=== PATIENT | female | born 1970 | race Caucasian/White ===

== ENCOUNTER 2017-03-01 06:27 | Emergency (ER) | payer MEDICAID ==
[2017-03-01 06:36] VITALS: TEMP 98.1; O2SAT 100
[2017-03-01 07:49] LABS: RBC URINE 15 /hpf (0-3); URINE BACTERIA OCC (<OCC); URINE BILIRUBIN NEGATIVE (NEGATIVE); URINE BLOOD 3+ (NEGATIVE); URINE COLOR Straw (YELLOW); URINE GLUCOSE (UA) NORMAL (Normal); URINE KETONE NEGATIVE (NEGATIVE); URINE LEUKOCYTE ESTERASE 3+ Leu/uL (Negative); URINE PROTEIN NEGATIVE (NEGATIVE); URINE UROBILINOGEN NORMAL mg/dL (0.2-1.0); WBC URINE 68 /hpf (0-5)
--- NOTE | 2017-03-01 08:11 | C.PDOC ---
History Of Present Illness 47 y/o female presents to the ED with complaints of pain with urination x3 days with associated lower abdominal pain and nausea. Pt denies fever, chills, hematuria or any other complaints. Time Seen by Provider: 03/01/17 07:21 Chief Complaint (Nursing): Female Genitourinary History Per: Patient History/Exam Limitations: no limitations Onset/Duration Of Symptoms: Days Current Symptoms Are (Timing): Still Present Severity: Moderate Quality Of Discomfort: "Pain" Associated Symptoms: Nausea, Urinary Symptoms. denies: Fever, Chills, Vomiting , Back Pain Alleviating Factors: None Recent travel outside of the [place]: No Abnormal Vaginal Bleeding: No Past Medical History Reviewed: Historical Data, Nursing Documentation, Vital Signs Vital Signs: Last Vital Signs Temp 98.1 F 03/01/17 10:46 Pulse 87 03/01/17 10:46 Resp 16 03/01/17 10:46 BP 121/77 03/01/17 10:46 Pulse Ox 100 03/01/17 10:46 - Medical History PMH: Gall Bladder Disease (CHOLECYSTECTOMY), Migraine Surgical History: Cholecystectomy Family History: States: Unknown Family Hx - Social History Hx Tobacco Use: No Hx Alcohol Use: No Hx Substance Use: No - Immunization History Hx Tetanus Toxoid Vaccination: No Hx Influenza Vaccination: No Hx Pneumococcal Vaccination: No Review Of Systems Except As Marked, All Systems Reviewed And Found Negative. Constitutional: Negative for: Fever, Chills Gastrointestinal: Positive for: Nausea, Abdominal Pain. Negative for: Vomiting Genitourinary: Positive for: Dysuria. Negative for: Hematuria, Vaginal Bleeding Musculoskeletal: Negative for: Back Pain Physical Exam - Physical Exam Appears: Non-toxic, No Acute Distress Skin: Warm, Dry, No Rash Head: Atraumatic, Normacephalic Cardiovascular: Rhythm Regular, No Murmur Respiratory: Normal Breath Sounds, No Rales, No Rhonchi, No Wheezing Gastrointestinal/Abdominal: Normal Exam, Soft, No Tenderness, Mass (fibroid), No Guarding, No Rebound Extremity: Normal ROM Extremity: Bilateral: Atraumatic Neurological/Psych: Oriented x3, Normal Speech ED Course And Treatment - Laboratory Results Result Diagrams: 03/01/17 08:04 03/01/17 08:04 Lab Interpretation: No Acute Changes Urine POC: Negative O2 Sat by Pulse Oximetry: 100 Pulse Ox Interpretation: Normal - CT Scan/US No standard instances Other Rad Studies (CT/US): Read By Radiologist, Radiology Report Reviewed CT/US Interpretation: FINDINGS: There is limited evaluation of the solid organs without the administration of IV contrast. LOWER THORAX: No visible consolidation, pleural effusion, or pneumothorax. 2 mm right lower lobe nodule (series 5, image 8). Small hiatal hernia. LIVER: Unremarkable unenhanced appearance. GALLBLADDER AND BILE DUCTS: Cholecystectomy. PANCREAS: Unremarkable unenhanced appearance. SPLEEN: Unremarkable unenhanced appearance. ADRENALS: Unremarkable unenhanced appearance. KIDNEYS AND URETERS : No hydronephrosis or obstructing renal calculus. Nonobstructing 2 mm right renal calculus. BLADDER: Mildly thick-walled urinary bladder may be exaggerated by under distension. REPRODUCTIVE: Enlarged heterogeneous uterus. The uterus extends above the umbilicus. Multiple probable fibroids. APPENDIX: The appendix appears within normal limits of caliber. No secondary signs of acute appendicitis. BOWEL: The stomach is nondistended. Lack of oral contrast limits evaluation for bowel pathology. The bowel loops appear within normal limits of caliber without evidence of intestinal obstruction. Mild-to- moderate constipation. PERITONEUM: No significant free fluid. No definite free air. LYMPH NODES: No bulky lymphadenopathy identified. VASCULATURE: No aortic aneurysm. BONES: No acute osseous abnormality is detected. OTHER FINDINGS: Small fat containing umbilical hernia. IMPRESSION: Mild to moderate constipation. Enlarged heterogeneous appearance of the uterus. The uterus extends above the umbilicus. Multiple probable uterine fibroids. Mildly thick-walled urinary bladder may be exaggerated by under distension. Recommend correlation with urinalysis to exclude possibility of cystitis. 2 mm right lower lobe pulmonary nodule. In the absence of risk factors for lung cancer, no specific imaging follow-up is required. If the patient is a smoker or has other risk factors, follow-up CT at 12 months is recommended to document stability. Progress Note: Plan: CT abd, labs, urine, toradol, IV fluids. On re-evaluation abdomen soft non-tender, feeling better Reassessment Condition: Improved Disposition Counseled Patient/Family Regarding: Studies Performed, Diagnosis, Need For Followup, Rx Given - Disposition Referrals: [facility] [Outside] [facility] [Outside] Disposition: HOME/ ROUTINE Disposition Time: 10:40 Condition: IMPROVED Additional Instructions: Return to ED if any increase symptoms Prescriptions: Naproxen [Naprosyn] 1 tab PO BID PRN #25 tab PRN Reason: Pain Nitrofurantoin Macrocrystals [Macrobid] 1 cap PO BID #14 cap Instructions: Urinary Tract Infection in Women (DC) Print Language: [place] - POA Present On Arrival: None - Clinical Impression Clinical Impression: Uterine fibroid, UTI (urinary tract infection) - PA / ASSESSMENT CONSULTANT / Resident Statement MD/DO has reviewed & agrees with the documentation as recorded. - Scribe Statement The provider has reviewed the documentation as recorded by the Scriblauren Ramirez All medical record entries made by the Nicko were at my direction and personally dictated by me. I have reviewed the chart and agree that the record accurately reflects my personal performance of the history, physical exam, medical decision making, and the department course for this patient. I have also personally directed, reviewed, and agree with the discharge instructions and disposition.
[2017-03-01 08:17] LABS: BASO # 0.1 K/uL (0.0-0.2); BASO % 0.8 % (0.0-2.0); EOS # 0.2 K/uL (0.0-0.7); EOS % 1.4 % (0.0-4.0); HEMATOCRIT 32.1 % (34.0-47.0); LYMPH # 1.9 K/uL (1.0-4.3); LYMPH % 14.8 % (20.0-40.0); MEAN CELL VOLUME 75.3 fL (81.0-99.0); MEAN CORPUSCULAR HEMOGLOBIN 23.2 pg (27.0-31.0); MEAN CORPUSCULAR HGB CONC 30.8 g/dL (33.0-37.0); MEAN PLATELET VOLUME 7.9 fL (7.2-11.7); MONO # 0.6 K/uL (0.0-0.8); MONO % 4.5 % (0.0-10.0); RED CELL DISTRIBUTION WIDTH 16.8 % (11.5-14.5); WHITE BLOOD COUNT 12.7 K/uL (4.8-10.8)
[2017-03-01 08:39] LABS: CHLORIDE 103 mmol/L (98-107); POTASSIUM 4.2 mmol/L (3.6-5.2); SODIUM 139 mmol/L (132-148)
[2017-03-01 08:42] LABS: BLOOD UREA NITROGEN 9 mg/dL (7-17); CARBON DIOXIDE 27 mmol/L (22-30); GFR AFRICAN-AMERICAN > 60
[2017-03-01 08:43] LABS: CALCIUM 8.1 mg/dl (8.6-10.4); GLUCOSE,RANDOM 93 mg/dL (65-105)
--- NOTE | 2017-03-01 10:29 | CT ---
PROCEDURE: CT Abdomen and Pelvis without Oral or IV contrast. HISTORY: Pain COMPARISON: CT abdomen and pelvis performed 11/03/14 TECHNIQUE: Contiguous axial images of the abdomen and pelvis. No oral or IV contrast administered. Coronal and Sagittal reformats generated and reviewed. Radiation dose: Total exam DLP = 580.80 mGy-cm. This CT exam was performed using one or more of the following dose reduction techniques: Automated exposure control, adjustment of the mA and/or kV according to patient size, and/or use of iterative reconstruction technique. FINDINGS: There is limited evaluation of the solid organs without the administration of IV contrast. LOWER THORAX: No visible consolidation, pleural effusion, or pneumothorax. 2 mm right lower lobe nodule (series 5, image 8). Small hiatal hernia. LIVER: Unremarkable unenhanced appearance. GALLBLADDER AND BILE DUCTS: Cholecystectomy. PANCREAS: Unremarkable unenhanced appearance. SPLEEN: Unremarkable unenhanced appearance. ADRENALS: Unremarkable unenhanced appearance. KIDNEYS AND URETERS: No hydronephrosis or obstructing renal calculus. Nonobstructing 2 mm right renal calculus. BLADDER: Mildly thick-walled urinary bladder may be exaggerated by under distension. REPRODUCTIVE: Enlarged heterogeneous uterus. The uterus extends above the umbilicus. Multiple probable fibroids. APPENDIX: The appendix appears within normal limits of caliber. No secondary signs of acute appendicitis. BOWEL: The stomach is nondistended. Lack of oral contrast limits evaluation for bowel pathology. The bowel loops appear within normal limits of caliber without evidence of intestinal obstruction. [id number]-[id number] constipation. PERITONEUM: No significant free fluid. No definite free air. LYMPH NODES: No bulky lymphadenopathy identified. VASCULATURE: No aortic aneurysm. BONES: No acute osseous abnormality is detected. OTHER FINDINGS: Small fat containing umbilical hernia. IMPRESSION: Mild to moderate constipation. Enlarged heterogeneous appearance of the uterus. The uterus extends above the umbilicus. Multiple probable uterine fibroids. Mildly thick-walled urinary bladder may be exaggerated by under distension. Recommend correlation with urinalysis to exclude possibility of cystitis. 2 mm right lower lobe pulmonary nodule. In the absence of risk factors for lung cancer, no specific imaging follow-up is required. If the patient is a smoker or has other risk factors, follow-up CT at 12 months is recommended to document stability. Additional findings as above.
[2017-03-01 10:48] VITALS: BP 121/77; PULSE 87; RESP 16
== END 2017-03-01 10:49 | disposition home or self-care (01) ==
LOC: C.ER 06:27
DX: N39.0 Urinary tract infection, site not specified (principal); D25.9 Leiomyoma of uterus, unspecified
CPT/HCPCS: 74176; 80048; 81001; 84703; 85025; 96374; 99285; J1885

== ENCOUNTER 2017-07-22 11:18 | Observation (INO) | payer MEDICAID ==
[2017-07-22] MEDS ORDERED: Sodium Chloride 0.9% 1,000 ML IV ONE ×3 (12:06→18:04)
[2017-07-22 12:35] LABS: BASO % 0.2 % (0.0-2.0); HEMATOCRIT 40.5 % (34.0-47.0); LYMPH # 0.5 K/uL (1.0-4.3); LYMPH % 2.3 % (20.0-40.0); MEAN CORPUSCULAR HEMOGLOBIN 30.4 pg (27.0-31.0); MEAN PLATELET VOLUME 8.1 fL (7.2-11.7); MONO # 0.9 K/uL (0.0-0.8); MONO % 4.2 % (0.0-10.0); PLATELET COUNT 210 K/uL (130-400); RED CELL DISTRIBUTION WIDTH 15.4 % (11.5-14.5)
[2017-07-22 12:40] LABS: MEAN CELL VOLUME 89.5 fL (81.0-99.0); WHITE BLOOD COUNT 21.2 K/uL (4.8-10.8)
[2017-07-22 12:42] LABS: CHLORIDE 98 mmol/L (98-107)
[2017-07-22 12:43] LABS: POTASSIUM 3.1 mmol/L (3.6-5.2); RBC URINE 7 /hpf (0-3); SODIUM 134 mmol/L (132-148); URINE BILIRUBIN NEGATIVE (NEGATIVE); URINE BLOOD 1+ (NEGATIVE); URINE COLOR Yellow (YELLOW); URINE GLUCOSE (UA) NORMAL (Normal); URINE KETONE 1+ mg/dL (NEGATIVE); URINE LEUKOCYTE ESTERASE NEG Leu/uL (Negative); URINE PROTEIN NEGATIVE (NEGATIVE); WBC URINE 2 /hpf (0-5)
[2017-07-22 12:45] LABS: ALB/GLOB RATIO 1.7 (1.0-2.1); ALKALINE PHOSPHATASE 112 U/L (38-126); AST/SGOT 375 U/L (14-36); BLOOD UREA NITROGEN 11 mg/dL (7-17); CARBON DIOXIDE 24 mmol/L (22-30); GFR AFRICAN-AMERICAN > 60; TOTAL PROTEIN 6.6 g/dL (6.3-8.3)
[2017-07-22 12:46] LABS: ALT/SGPT 263 U/L (9-52); GLUCOSE,RANDOM 115 mg/dL (65-105)
[2017-07-22 13:01] LABS: NEUTROPHIL 88 % (50-75); TOTAL CELLS COUNTED 100
[2017-07-22] MEDS ORDERED: Potassium Chloride 20 mEq ER Tab PO STA (13:02)
[2017-07-22 13:07] LABS: LARGE PLATELETS PRESENT
[2017-07-22] MEDS ORDERED: Potassium Chloride 20 mEq ER Tab PO ONE (13:51)
[2017-07-22] MEDS ORDERED: Iodixanol 320 MG/ML 100 ML BOTTLE IV ONE (15:38)
--- NOTE | 2017-07-22 17:16 | CT ---
PROCEDURE: CT abdomen pelvis dated 07/22/2017. HISTORY: Pain. COMPARISON: Comparison made with prior CT scan abdomen pelvis 03/01/2017 comparison also made with multiple additional CT scans of the abdomen pelvis as well as abdominal ultrasound 02/01/2016. TECHNIQUE: Contiguous axial images of the abdomen and pelvis performed of following intravenous injection of oral and intravenous contrast material. . Pelvis without Coronal and Sagittal reformats generated. This CT exam was performed using one or more of the following dose reduction techniques: Automated exposure control, adjustment of the mA and/or kV according to patient size, and/or use of iterative reconstruction technique. Contrast dose: 100 cc Visipaque 320 contrast material Radiation dose: Total exam DLP = 239.36 mGy-cm. FINDINGS: LOWER THORAX: Small hiatal hernia with wall thickening of the distal esophagus likely due to protrusion of gastric mucosa. Possibility of esophagitis not excluded. Mild irregular atelectasis and or scarring right medial lung base. Heart size is within range of normal. LIVER: Liver exhibits normal size. Mild diffuse fatty hepatic infiltration. GALLBLADDER AND BILE DUCTS: Gallbladder is surgically absent with metallic clips again seen gallbladder fossa. Re- demonstrated PANCREAS: Unremarkable. No mass. No ductal dilatation. SPLEEN: Spleen is unremarkable. ADRENALS: Unremarkable. KIDNEYS AND URETERS: Kidneys demonstrate symmetric nephrograms. BLADDER: Urinary bladder is physiologically distended no somewhat compressed along its superior border by the large uterine mass lesion REPRODUCTIVE: Re- demonstrated is a very large and uterine mass measures approximately 15 by 12.5 x 10.2 cm ; this most likely represents uterine fibroid however other uterine pathology not excluded. APPENDIX: Normal-appearing appendix. BOWEL: Stomach is incompletely distended which presumably accounts for thick-walled appearance. Visualized loops of small bowel exhibit normal contour and caliber. No evidence of acute mechanical small bowel obstruction. Note that the small bowel is displaced superiorly and laterally about the large uterine mass. The stool and air seen throughout the proximal colon however the distal transverse descending and sigmoid colon relatively collapsed. PERITONEUM: Unremarkable. No fluid collection. No free air. Small fat containing umbilical hernia. LYMPH NODES: Unremarkable. No enlarged lymph nodes. VASCULATURE: Unremarkable. No aortic aneurysm. BONES: Minor multilevel degenerative spondylosis of the lower thoracic spine. No acute compression fractures no retropulsed fragments. OTHER FINDINGS: None. IMPRESSION: Re- demonstrated is a large uterine mass. Status post cholecystectomy. Mild fatty hepatic infiltration
[2017-07-22] MEDS ORDERED: cefTRIAXone IV 1 gm in Dextros 50 ML IV ONE (17:23)
--- NOTE | 2017-07-22 17:55 | C.PDOC ---
History Of Present Illness Patient is a 47 y/o female with past medical history includes migraine, cholecystectomy, and fibroid who presents to the ED with a complaint of lower back pain that radiates to the abdomen for the last 2 days. Patient admits to experiencing headache and nausea, but denies vomiting or fever. Reports Hx of similar episode a few months ago. No other physical complaints at this time. (- ) vaginal discharge Time Seen by Provider: 07/22/17 11:33 Chief Complaint (Nursing): Female Genitourinary History Per: Patient History/Exam Limitations: no limitations Onset/Duration Of Symptoms: Days (two days ), Waxing/Waning Current Symptoms Are (Timing): Still Present Recent travel outside of the [place]: No Past Medical History Reviewed: Historical Data, Nursing Documentation, Vital Signs Vital Signs: Last Vital Signs Temp 99.2 F 07/22/17 17:56 Pulse 101 H 07/22/17 17:56 Resp 16 07/22/17 17:56 BP 91/58 L 07/22/17 17:56 Pulse Ox 98 07/22/17 18:04 - Medical History PMH: Gall Bladder Disease (CHOLECYSTECTOMY), Migraine Surgical History: Cholecystectomy Family History: States: No Known Family Hx - Social History Hx Tobacco Use: No Hx Alcohol Use: No Hx Substance Use: No - Immunization History Hx Tetanus Toxoid Vaccination: No Hx Influenza Vaccination: No Hx Pneumococcal Vaccination: No Review Of Systems Constitutional: Negative for: Fever Gastrointestinal: Positive for: Nausea, Abdominal Pain (radiates from lower back ). Negative for: Vomiting Musculoskeletal: Positive for: Back Pain (lower back) Neurological: Positive for: Headache Physical Exam - Physical Exam Appears: Well, Non-toxic, No Acute Distress Skin: Normal Color, Warm, Dry Head: Atraumatic, Normacephalic Eye(s): bilateral: Normal Inspection, EOMI Nose: Normal Oral Mucosa: Moist Chest: Symmetrical Cardiovascular: Rhythm Regular, No Murmur Respiratory: Normal Breath Sounds, No Accessory Muscle Use, Other (speaking in full sentences) Gastrointestinal/Abdominal: Soft, Tenderness (diffuse), Mass Back: No Vertebral Tenderness, Other (paralumbar tenderness) Neurological/Psych: Oriented x3, Normal Cognition, Other (no focal deficits) ED Course And Treatment - Laboratory Results Result Diagrams: 07/22/17 12:31 07/22/17 12:31 ECG: Interpreted By Me, Viewed By Me ECG Rhythm: Sinus Tachycardia Rate From EC O2 Sat by Pulse Oximetry: 98 (room air) Pulse Ox Interpretation: Normal - Radiology CXR: Interpreted by Me, Viewed By Me CXR Interpretation: No: Infiltrates (no acute infiltrates) - CT Scan/US Abd/Pelvis Other Rad Studies (CT/US): Interpreted By Me, Read By Radiologist CT/US Interpretation: IMPRESSION: Re-demonstrated is a large uterine mass. Status post cholecystectomy. Mild fatty hepatic infiltration. Progress Note: Plan: EKG, CXR, and blood culture ordered. Tylenol, Toradol, Zofran, Rocephin, and IV fluids administered. - Physician Consult Information Time Consulting Physician Contacted: 18:45 Physician Contacted: Regan Allen Outcome Of Conversation: Case discussed with Dr. Allen and he agreed upon admission of patient. Disposition - Disposition Disposition: HOSPITALIZED Disposition Time: 18:15 Condition: STABLE - Clinical Impression Clinical Impression: Uterine fibroid, Leukocytosis - Scribe Statement The provider has reviewed the documentation as recorded by the Scribe Rosibel Miller All medical record entries made by the Scribe were at my direction and personally dictated by me. I have reviewed the chart and agree that the record accurately reflects my personal performance of the history, physical exam, medical decision making, and the department course for this patient. I have also personally directed, reviewed, and agree with the discharge instructions and disposition.
[2017-07-22] MEDS ORDERED: cefTRIAXone IV 1 gm in Dextros 50 ML IVPB ONE (17:56)
--- NOTE | 2017-07-22 18:01 | RAD ---
HISTORY: pain COMPARISON: Comparison made with chest radiograph 12/21/2013. Comparison also made with CT scan of the abdomen and pelvis dated 07/22/2017 which imaged both lung bases. TECHNIQUE: Chest PA and lateral FINDINGS: LUNGS: No active pulmonary disease. PLEURA: No significant pleural effusion identified. No pneumothorax apparent. CARDIOVASCULAR: Normal. OSSEOUS STRUCTURES: No significant abnormalities. VISUALIZED UPPER ABDOMEN: Normal. OTHER FINDINGS: None. IMPRESSION: No acute infiltrates.
[2017-07-22] MEDS ORDERED: Sodium Chloride 0.9% 1,000 ML ONE (18:08)
--- NOTE | 2017-07-22 22:11 | CP.PCM.CON ---
History of Present Illness - History of Present Illness History of Present Illness: Asked to see patient by Dr. Genie Allen: h/o leiomyomata. Patient received in bed, room 368; groggy; arousable. 47 y.o. , LMP 1 week ago, presented to E.D. c/o right low back/ flank/ RLQ and RUQ pain x 3 days. Denies nausea, vomiting, fever, chills, change in bowel movement pattern or symptoms. Patient has a private manager intern provider, office in [facility]. Patient states has no desire for any intervention re: leiomyoma. CT scan this admission: large uterine mass 15 x 12.5 x 10.2 cm; no lymphadenopathy P OB: C/S x 3: 24, 22 and 13 years ago. No complications P DRAMA DIRECTOR: 12 x monthly x 3-4 days. First diagnosed with leiomyomata 4 years ago. Most recent Pap - earlier this year. Most recent mammogram- earlier this year. Denies H/O STIs or abnormal Pap PMH: gallstones PSH: C/S x 3. 2011, right breast biopsy/cystectomy - benign. 2011, cholecystectomy Allergies: morphine = itching; benadryl - low blood pressure Meds: none at home Soc Hx: denies tobacco, illicit drug or EtOH use. Lives with significant other ; together x 28 years. 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 - Breast cancer survivor. Father - unknown. No other fam h/o cancer Review of Systems - Review of Systems All systems: reviewed and no additional remarkable complaints except - Musculoskeletal Musculoskeletal: Back Pain Past Patient History - Infectious Disease Hx of Infectious Diseases: None - Past Medical History & Family History Pertinent Family History: Mother - breast cancer - Past Social History Smoking Status: Never Smoked Drugs: Denies Home Situation {Lives}: With Family - CARDIAC Hx Cardiac Disorders: No - PULMONARY Hx Respiratory Disorders: No - NEUROLOGICAL Hx Migraine: Yes - HEENT Hx HEENT Problems: No - RENAL Hx Chronic Kidney Disease: No - ENDOCRINE/METABOLIC Hx Endocrine Disorders: No - HEMATOLOGICAL/ONCOLOGICAL Hx Blood Disorders: No - INTEGUMENTARY Hx Dermatological Problems: No - MUSCULOSKELETAL/RHEUMATOLOGICAL Hx Musculoskeletal Disorders: No - GASTROINTESTINAL Hx Gall Bladder Disease: Yes (CHOLECYSTECTOMY) - GENITOURINARY/GYNECOLOGICAL Other/Comment: Leiomyomata : 3 Para: 3 Termination of : 0 - PSYCHIATRIC Hx Psychophysiologic Disorder: No Hx Substance Use: No - SURGICAL HISTORY Hx Breast Biopsy: Yes (right, 2012) Hx Cholecystectomy: Yes - ANESTHESIA Hx Anesthesia: Yes Hx Anesthesia Reactions: No Meds Allergies/Adverse Reactions: Allergies Allergy/AdvReac Type Severity Reaction Status Date / Time diphenhydramine HCl AdvReac Verified 07/22/17 11:26 [From Benadryl] morphine AdvReac SHORTNESS Verified 07/22/17 11:26 OF BREATH - Medications Medications: Current Medications Enoxaparin Sodium (Lovenox) 40 mg SC DAILY LUIS ALFREDO Sodium Chloride (Sodium Chloride 0.9%) 1,000 mls @ 100 mls/hr IV .Q10H ONE Stop: 07/23/17 04:03 Last Admin: 07/22/17 18:11 Dose: 100 mls/hr Ceftriaxone Sodium 1 gm/ (Sodium Chloride) 100 mls @ 100 mls/hr IVPB Q24H LUIS ALFREDO Vancomycin/Sodium Chloride (Vancomycin 1 Gm/Ns 200 Ml) 1 gm in 200 mls @ 133 mls/hr IVPB DAILY [facility] Stop: 07/28/17 10:01 Ibuprofen (Motrin Tab) 400 mg PO Q8H PRN PRN Reason: Headache Pantoprazole Sodium (Protonix Inj) 40 mg IVP DAILY [facility] Physical Exam - Constitutional Appears: Well, No Acute Distress - Head Exam Head Exam: NORMAL INSPECTION - ENT Exam ENT Exam: Mucous Membranes Moist - Neck Exam Neck exam: Positive for: Full Rom - Respiratory Exam Respiratory Exam: NORMAL BREATHING PATTERN - Cardiovascular Exam Cardiovascular Exam: REGULAR RHYTHM - GI/Abdominal Exam GI & Abdominal Exam: Mass, Soft (Abdominal mass approx 18 weeks, firm, mobile, minimally tender.) - Exam Bimanual exam: Uterine Enlargement Additional comments: Bimanual exam deferred at this time - Extremities Exam Extremities exam: Positive for: full ROM, normal inspection - Neurological Exam Neurological exam: Oriented x3 - Psychiatric Exam Psychiatric exam: Normal Affect, Normal Mood - Skin Skin Exam: Dry, Normal Color, Warm Results - Vital Signs Recent Vital Signs: Last Vital Signs Temp 99.2 F 07/22/17 17:56 Pulse 101 H 07/22/17 17:56 Resp 16 07/22/17 17:56 BP 91/58 L 07/22/17 17:56 Pulse Ox 98 07/22/17 18:46 - Labs Result Diagrams: 07/22/17 12:31 07/22/17 12:31 Labs: Laboratory Results - last 24 hr 07/22/17 07/22/17 07/22/17 12:31 12:31 12:31 WBC 21.2 H D RBC 4.53 Hgb 13.8 D Hct 40.5 MCV 89.5 D MCH 30.4 MCHC 34.0 RDW 15.4 H Plt Count 210 MPV 8.1 Neut % (Auto) 93.3 H Lymph % (Auto) 2.3 L [place] % (Auto) 4.2 Eos % (Auto) 0.0 Baso % (Auto) 0.2 Neut # 19.8 H Lymph # 0.5 L [place] # 0.9 H Eos # 0.0 Baso # 0.0 Neutrophils % (Manual) 88 H Band Neutrophils % 6 H Lymphocytes % (Manual) 2 L Monocytes % (Manual) 4 Platelet Estimate Normal Large Platelets Present Polychromasia Slight Hypochromasia (manual) Slight Anisocytosis (manual) Slight Sodium 134 Potassium 3.1 L Chloride 98 Carbon Dioxide 24 Anion Gap 15 BUN 11 Creatinine 0.6 L Est GFR ( Amer) > 60 Est GFR (Non-Af Amer) > 60 Random Glucose 115 H Calcium 9.0 Total Bilirubin 1.0 AST 375 H ALT 263 H D Alkaline Phosphatase 112 Total Protein 6.6 Albumin 4.2 Globulin 2.5 Albumin/Globulin Ratio 1.7 Lipase 58 Urine Color Yellow Urine Clarity Clear Urine pH 6.0 Ur Specific [place] 1.014 Urine Protein Negative Urine Glucose (UA) Normal Urine Ketones 1+ H Urine Blood 1+ H Urine Nitrate Negative Urine Bilirubin Negative Urine Urobilinogen 2.0 H Ur Leukocyte Esterase Neg Urine WBC (Auto) 2 Urine RBC (Auto) 7 H Ur Squamous Epith Cells 5 Urine HCG, Qual Negative Influenza Typ A,B (EIA) 07/22/17 16:58 WBC RBC Hgb Hct MCV MCH MCHC RDW Plt Count MPV Neut % (Auto) Lymph % (Auto) [place] % (Auto) Eos % (Auto) Baso % (Auto) Neut # Lymph # [place] # Eos # Baso # Neutrophils % (Manual) Band Neutrophils % Lymphocytes % (Manual) Monocytes % (Manual) Platelet Estimate Large Platelets Polychromasia Hypochromasia (manual) Anisocytosis (manual) Sodium Potassium Chloride Carbon Dioxide Anion Gap BUN Creatinine Est GFR ( Amer) Est GFR (Non-Af Amer) Random Glucose Calcium Total Bilirubin AST ALT Alkaline Phosphatase Total Protein Albumin Globulin Albumin/Globulin Ratio Lipase Urine Color Urine Clarity Urine pH Ur Specific [place] Urine Protein Urine Glucose (UA) Urine Ketones Urine Blood Urine Nitrate Urine Bilirubin Urine Urobilinogen Ur Leukocyte Esterase Urine WBC (Auto) Urine RBC (Auto) Ur Squamous Epith Cells Urine HCG, Qual Influenza Typ A,B (EIA) Negative for flu a/b Assessment & Plan - Assessment and Plan (Free Text) Assessment: Labs and CT report read by me personally 47 y.o. P3, 4 year h/o leiomyoma - admitted for leukocytosis with bandemia. Patient has private manager intern - can follow up as an outpatient; no manager intern intervention at this time. Patient is clinically stable. Thank you for the pleasure of this consultation Plan: Medical management as per primary medical team - Date & Time Date: 07/22/17 Time: 22:21
[2017-07-23] MEDS ORDERED: Sodium Chloride 0.9% 1,000 ML IV SCH ×2 (07:00)
[2017-07-23 07:50] VITALS: BP 103/69; PULSE 89; RESP 20; TEMP 97.8; O2SAT 97
[2017-07-23 07:56] LABS: BASO # 0.1 K/uL (0.0-0.2); BASO % 0.3 % (0.0-2.0); EOS % 0.1 % (0.0-4.0); HEMATOCRIT 38.5 % (34.0-47.0); LYMPH # 0.9 K/uL (1.0-4.3); LYMPH % 5.6 % (20.0-40.0); MEAN CELL VOLUME 91.4 fL (81.0-99.0); MEAN CORPUSCULAR HEMOGLOBIN 30.5 pg (27.0-31.0); MEAN CORPUSCULAR HGB CONC 33.4 g/dL (33.0-37.0); MEAN PLATELET VOLUME 8.3 fL (7.2-11.7); MONO # 0.6 K/uL (0.0-0.8); MONO % 3.8 % (0.0-10.0); PLATELET COUNT 187 K/uL (130-400); RED CELL DISTRIBUTION WIDTH 15.9 % (11.5-14.5); WHITE BLOOD COUNT 15.6 K/uL (4.8-10.8)
[2017-07-23 08:19] LABS: CHLORIDE 104 mmol/L (98-107); POTASSIUM 3.7 mmol/L (3.6-5.2); SODIUM 135 mmol/L (132-148)
[2017-07-23 08:21] LABS: ALB/GLOB RATIO 1.4 (1.0-2.1); AST/SGOT 154 U/L (14-36); CARBON DIOXIDE 25 mmol/L (22-30); GFR AFRICAN-AMERICAN > 60; TOTAL PROTEIN 5.8 g/dL (6.3-8.3)
[2017-07-23 08:22] LABS: ALKALINE PHOSPHATASE 89 U/L (38-126); ALT/SGPT 206 U/L (9-52); BLOOD UREA NITROGEN 10 mg/dL (7-17); CALCIUM 7.9 mg/dl (8.6-10.4); GLUCOSE,RANDOM 77 mg/dL (65-105)
[2017-07-23 08:33] LABS: NEUTROPHIL 87 % (50-75); TOTAL CELLS COUNTED 100
[2017-07-23] MEDS ORDERED: Enoxaparin 40 mg Syringe SC SCH (10:00)
[2017-07-23] MEDS ORDERED: Vancomycin 1 gm/NS 200 ml 1 GM/200 ML BAG IVPB SCH (10:00)
[2017-07-23] MEDS ORDERED: Influenza Vaccine 60 mcg/0.5 mL SYR (4YR UP) IM ONE (12:53)
[2017-07-23] MEDS ORDERED: Pneumococcal 23-Valent Vaccine IM ONE (12:53)
--- NOTE | 2017-07-24 12:44 | CARD ---
APPROVED REPORT EKG Measurement Heart [id number] <Conclusion> Sinus tachycardia Otherwise normal ECG
[2017-07-25] MEDS ORDERED: Influenza Vaccine 60 mcg/0.5 mL SYR (4YR UP) IM ONE (10:00)
[2017-07-25] MEDS ORDERED: Pneumococcal 23-Valent Vaccine IM ONE ×2 (10:00→23:27)
== END 2017-07-23 14:15 | disposition left against medical advice (07) ==
LOC: C.ER 11:18 → C.9E 17:25 → C.3T 17:46
PROVIDERS: ADMIT Internal Medicine Nephrology; ATTEND Internal Medicine Nephrology
DX: D25.9 Leiomyoma of uterus, unspecified (principal); D72.829 Elevated white blood cell count, unspecified
CPT/HCPCS: 36415; 71020; 74177; 80053; 81001; 83690; 84703; 85025; 87040; 87804; 93005; 96361; 96365; 96367; 96372; 96375; 99285; C9113; G0378; J0696; J1650; J1885; J2405; J3370; J7040; Q9967

== ENCOUNTER 2017-08-23 10:53 | Emergency (ER) | payer MEDICAID ==
--- NOTE | 2017-08-23 11:17 | C.PDOC ---
History Of Present Illness 47 y/o female presents to ED c/o lower abdominal pain radiating to her back since yesterday. Pt also reports associated fever, chills, nausea, and vomiting. Denies dysruia, hematuria, urinary frequency, or other complaints. Time Seen by Provider: 08/23/17 11:07 Chief Complaint (Nursing): Back Pain History Per: Patient History/Exam Limitations: no limitations Onset/Duration Of Symptoms: Days (1) Current Symptoms Are (Timing): Still Present Quality Of Discomfort: "Pain" Associated Symptoms: denies: Incontinence, New Weakness, New Numbness Exacerbating Factor(s): Nothing Recent travel outside of the [place]: No Additional History Per: Patient Past Medical History Reviewed: Historical Data, Nursing Documentation, Vital Signs Vital Signs: Last Vital Signs Temp 99.6 F 08/23/17 10:59 Pulse 120 H 08/23/17 10:59 Resp 20 08/23/17 10:59 BP 105/71 08/23/17 10:59 Pulse Ox 98 08/23/17 11:32 - Medical History PMH: Anemia, Gall Bladder Disease (CHOLECYSTECTOMY), Migraine Denies: Chronic Kidney Disease Surgical History: Cholecystectomy Family History: States: Unknown Family Hx - Social History Hx Tobacco Use: No Hx Alcohol Use: No Hx Substance Use: No - Immunization History Hx Tetanus Toxoid Vaccination: No Hx Influenza Vaccination: No Hx Pneumococcal Vaccination: No Review Of Systems Except As Marked, All Systems Reviewed And Found Negative. Constitutional: Positive for: Fever, Chills Cardiovascular: Negative for: Chest Pain Respiratory: Negative for: Shortness of Breath Gastrointestinal: Positive for: Nausea, Vomiting, Abdominal Pain. Negative for : Diarrhea, Constipation Genitourinary: Negative for: Dysuria, Frequency, Hematuria, Vaginal Discharge, Vaginal Bleeding Physical Exam - Physical Exam Appears: Non-toxic, No Acute Distress Skin: Normal Color, Warm, Dry Head: Atraumatic, Normacephalic Eye(s): bilateral: Normal Inspection Oral Mucosa: Moist Neck: Supple Chest: Symmetrical Cardiovascular: Rhythm Regular, No Murmur Respiratory: Normal Breath Sounds, No Rales, No Rhonchi, No Wheezing Gastrointestinal/Abdominal: Soft, Tenderness (diffuse), No Guarding, No Rebound Back: No CVA Tenderness Extremity: Normal ROM, No Pedal Edema Neurological/Psych: Oriented x3, Normal Speech ED Course And Treatment - Laboratory Results Result Diagrams: 08/23/17 11:51 08/23/17 11:51 O2 Sat by Pulse Oximetry: 98 Pulse Ox Interpretation: Normal Medical Decision Making Medical Decision Makin pt resting quietly, no distress, reports improvement in pain, appears comfortable. disc results, plan for rx, f/u, rtr. pt v/u and agrees w plan. PROCEDURE: CT Abdomen and Pelvis with contrast HISTORY: abdominal pain COMPARISON: Comparison is made to the previous study dated 07/22/2017 TECHNIQUE: Contrast dose: 100 mL Visipaque 320. Axial and reformatted coronal and sagittal CT images of the abdomen and pelvis were obtained after IV contrast administration. Radiation dose: Total exam DLP = 294.29 mGy-cm. This CT exam was performed using one or more of the following dose reduction techniques: Automated exposure control, adjustment of the mA and/or kV according to patient size, and/or use of iterative reconstruction technique. FINDINGS: LOWER THORAX: Unremarkable. LIVER: Unremarkable. No gross lesion or ductal dilatation. GALLBLADDER AND BILE DUCTS: Status post cholecystectomy. PANCREAS: Unremarkable. No gross lesion or ductal dilatation. SPLEEN: Unremarkable. ADRENALS: Unremarkable. No mass. KIDNEYS AND URETERS: There is 3 millimeter nonobstructing calculus at the mid to upper pole right kidney was previously noted in 01/1930 noncontrast study. No evidence of hydronephrosis or hydroureter. VASCULATURE: Unremarkable. No aortic aneurysm. BOWEL: Unremarkable. No obstruction. No gross mural thickening. APPENDIX: There is no evidence of appendicitis. PERITONEUM: Unremarkable. No free fluid. No free air. LYMPH NODES: There are mildly enlarged lymph nodes seen around the art the in the mid to upper abdomen of uncertain etiology likely reactive. BLADDER: The bladder is slightly displaced inferiorly by the enlarged uterus. REPRODUCTIVE: The uterus is moderately to markedly enlarged measures up to 23.3 centimeter in the largest longitudinal diameter. Again seen are multiple heterogeneous enhancing soft tissue mass lesions in the uterus may represent fibroids. The largest mass seen at the uterine fundus measures 12 centimeter in the transverse diameter and 9.4 centimeter in the AP diameter. The uterine cervix is also moderately enlarged. There is heterogeneous enhancing mass at the anterior lower portion of the uterine measures 2.3 centimeter likely represent fibroid. There is 2.1 centimeters cyst at the left adnexa. BONES: No acute fracture. OTHER FINDINGS: None. IMPRESSION: No evidence of significant interval change when compared to the previous exam. Mildly enlarged periaortic lymph nodes at the mid to upper abdomen noted. Moderately to markedly enlarged uterus contains heterogeneous enhancing mass lesions likely represent large fibroids. The possibility of fibroid degeneration or necrosis is not totally excluded in this study. 2.1 centimeters cyst at the left adnexa. 3 millimeter nonobstructing calculus at the midpole of the right kidney. Disposition - Disposition Disposition: HOME/ ROUTINE Disposition Time: 14:04 Condition: IMPROVED Forms: [employer] ([employer]) - Clinical Impression Clinical Impression: Abdominal pain, Vomiting - Scribe Statement The provider has reviewed the documentation as recorded by the Scribe Lynette Allen All medical record entries made by the Scribe were at my direction and personally dictated by me. I have reviewed the chart and agree that the record accurately reflects my personal performance of the history, physical exam, medical decision making, and the department course for this patient. I have also personally directed, reviewed, and agree with the discharge instructions and disposition.
[2017-08-23] MEDS ORDERED: Sodium Chloride 0.9% 1,000 ML IV ONE (11:18)
[2017-08-23] MEDS ORDERED: Sodium Chloride 0.9% 1,000 ML ONE ×2 (11:32→11:34)
[2017-08-23 11:54] LABS: BASO # 0.1 K/uL (0.0-0.2); BASO % 0.6 % (0.0-2.0); EOS % 0.1 % (0.0-4.0); HEMATOCRIT 41.4 % (34.0-47.0); LYMPH # 0.7 K/uL (1.0-4.3); MEAN CELL VOLUME 90.8 fL (81.0-99.0); MEAN CORPUSCULAR HEMOGLOBIN 30.4 pg (27.0-31.0); MEAN CORPUSCULAR HGB CONC 33.4 g/dL (33.0-37.0); MEAN PLATELET VOLUME 8.3 fL (7.2-11.7); MONO # 0.6 K/uL (0.0-0.8); MONO % 3.2 % (0.0-10.0); PLATELET COUNT 233 K/uL (130-400); WHITE BLOOD COUNT 18.6 K/uL (4.8-10.8)
[2017-08-23 12:11] LABS: URINE BILIRUBIN NEGATIVE (NEGATIVE); URINE BLOOD NEGATIVE (NEGATIVE); URINE COLOR Colorless (YELLOW); URINE GLUCOSE (UA) NORMAL (Normal); URINE KETONE NEGATIVE (NEGATIVE); URINE LEUKOCYTE ESTERASE NEG Leu/uL (Negative); URINE PROTEIN NEGATIVE (NEGATIVE); URINE UROBILINOGEN NORMAL mg/dL (0.2-1.0)
[2017-08-23 12:14] LABS: ALB/GLOB RATIO 1.5 (1.0-2.1); ALKALINE PHOSPHATASE 97 U/L (38-126); ALT/SGPT 133 U/L (9-52); AST/SGOT 177 U/L (14-36); BILIRUBIN,TOTAL 0.9 mg/dL (0.2-1.3); BLOOD UREA NITROGEN 9 mg/dL (7-17); CALCIUM 8.6 mg/dl (8.6-10.4); CARBON DIOXIDE 25 mmol/L (22-30); CHLORIDE 100 mmol/L (98-107); GFR AFRICAN-AMERICAN > 60; GLUCOSE,RANDOM 98 mg/dL (65-105); POTASSIUM 3.3 mmol/L (3.6-5.2); SODIUM 132 mmol/L (132-148); TOTAL PROTEIN 6.6 g/dL (6.3-8.3)
[2017-08-23 12:25] LABS: NEUTROPHIL 89 % (50-75); TOTAL CELLS COUNTED 100
[2017-08-23] MEDS ORDERED: Iodixanol 320 MG/ML 100 ML BOTTLE IV ONE (12:40)
--- NOTE | 2017-08-23 13:35 | CT ---
PROCEDURE: CT Abdomen and Pelvis with contrast HISTORY: abdominal pain COMPARISON: Comparison is made to the previous study dated 07/22/2017 TECHNIQUE: Contrast dose: 100 mL Visipaque 320. Axial and reformatted coronal and sagittal CT images of the abdomen and pelvis were obtained after IV contrast administration. Radiation dose: Total exam DLP = 294.29 mGy-cm. This CT exam was performed using one or more of the following dose reduction techniques: Automated exposure control, adjustment of the mA and/or kV according to patient size, and/or use of iterative reconstruction technique. FINDINGS: LOWER THORAX: Unremarkable. LIVER: Unremarkable. No gross lesion or ductal dilatation. GALLBLADDER AND BILE DUCTS: Status post cholecystectomy. PANCREAS: Unremarkable. No gross lesion or ductal dilatation. SPLEEN: Unremarkable. ADRENALS: Unremarkable. No mass. KIDNEYS AND URETERS: There is 3 millimeter nonobstructing calculus at the mid to upper pole right kidney was previously noted in 01/1930 noncontrast study. No evidence of hydronephrosis or hydroureter. VASCULATURE: Unremarkable. No aortic aneurysm. BOWEL: Unremarkable. No obstruction. No gross mural thickening. APPENDIX: There is no evidence of appendicitis. PERITONEUM: Unremarkable. No free fluid. No free air. LYMPH NODES: There are mildly enlarged lymph nodes seen around the art the in the mid to upper abdomen of uncertain etiology likely reactive. BLADDER: The bladder is slightly displaced inferiorly by the enlarged uterus. REPRODUCTIVE: The uterus is moderately to markedly enlarged measures up to 23.3 centimeter in the largest longitudinal diameter. Again seen are multiple heterogeneous enhancing soft tissue mass lesions in the uterus may represent fibroids. The largest mass seen at the uterine fundus measures 12 centimeter in the transverse diameter and 9.4 centimeter in the AP diameter. The uterine cervix is also moderately enlarged. There is heterogeneous enhancing mass at the anterior lower portion of the uterine measures 2.3 centimeter likely represent fibroid. There is 2.1 centimeters cyst at the left adnexa. BONES: No acute fracture. OTHER FINDINGS: None. IMPRESSION: No evidence of significant interval change when compared to the previous exam. Mildly enlarged periaortic lymph nodes at the mid to upper abdomen noted. Moderately to markedly enlarged uterus contains heterogeneous enhancing mass lesions likely represent large fibroids. The possibility of fibroid degeneration or necrosis is not totally excluded in this study. 2.1 centimeters cyst at the left adnexa. 3 millimeter nonobstructing calculus at the midpole of the right kidney.
[2017-08-23 14:59] VITALS: BP 101/64; PULSE 88; RESP 18; TEMP 98.7; O2SAT 100
== END 2017-08-23 14:25 | disposition home or self-care (01) ==
LOC: C.ER 10:53
DX: R10.30 Lower abdominal pain, unspecified (principal); R11.10 Vomiting, unspecified
CPT/HCPCS: 74177; 80053; 81001; 83690; 84703; 85025; 96361; 96374; 96375; 99283; J1885; J2405; J7040; Q9967

== ENCOUNTER 2018-05-07 08:35 | Observation (INO) | payer MEDICAID ==
[2018-05-07] MEDS ORDERED: Sodium Chloride 0.9% 1,000 ML IV STA (09:20)
[2018-05-07 09:29] LABS: HCG,QUALITATIVE URINE NEGATIVE (NEGATIVE)
[2018-05-07] MEDS ORDERED: Sodium Chloride 0.9% 1,000 ML ONE (09:32)
[2018-05-07 09:36] LABS: SQUAMOUS EPITHIAL 17 /hpf (0-5); URINE BACTERIA RARE (<OCC); URINE BILIRUBIN NEGATIVE (NEGATIVE); URINE BLOOD NEGATIVE (NEGATIVE); URINE CLARITY Clear (Clear); URINE COLOR Yellow (YELLOW); URINE GLUCOSE (UA) NORMAL (Normal); URINE LEUKOCYTE ESTERASE NEG Leu/uL (Negative); URINE PROTEIN NEGATIVE (NEGATIVE); URINE UROBILINOGEN NORMAL mg/dL (0.2-1.0)
[2018-05-07 09:38] LABS: BASO % 0.2 % (0.0-2.0); EOS % 0.2 % (0.0-4.0); LYMPH % 6.4 % (20.0-40.0); MEAN CORPUSCULAR HEMOGLOBIN 25.2 pg (27.0-31.0); MEAN PLATELET VOLUME 8.1 fL (7.2-11.7); MONO # 0.5 K/uL (0.0-0.8); MONO % 3.5 % (0.0-10.0); NEUT # 14.1 K/uL (1.8-7.0); NEUT % 89.7 % (50.0-75.0); PLATELET COUNT 276 K/uL (130-400); RBC 4.68 Mil/uL (3.80-5.20); RED CELL DISTRIBUTION WIDTH 16.5 % (11.5-14.5); WHITE BLOOD COUNT 15.7 K/uL (4.8-10.8)
[2018-05-07 09:41] LABS: HEMOGLOBIN 11.8 g/dL (11.0-16.0)
[2018-05-07 09:42] LABS: MEAN CELL VOLUME 78.6 fL (81.0-99.0)
[2018-05-07 09:58] LABS: ALB/GLOB RATIO 1.4 (1.0-2.1); ALBUMIN 4.1 g/dL (3.5-5.0); ALT/SGPT 40 U/L (9-52); AST/SGOT 45 U/L (14-36); BLOOD UREA NITROGEN 8 mg/dL (7-17); CALCIUM 9.1 mg/dl (8.6-10.4); GFR AFRICAN-AMERICAN > 60; GFR NON-AFRICAN AMERICAN > 60
[2018-05-07 10:06] LABS: LYMPHOCYTE 3 % (20-40); MONOCYTE 5 % (0-10); NEUTROPHIL 92 % (50-75); PLATELET ESTIMATE NORMAL (NORMAL); TOTAL CELLS COUNTED 100
[2018-05-07 10:07] LABS: ANISOCYTOSIS SLIGHT; HYPOCHROMIC SLIGHT; POLYCHROMIC SLIGHT
[2018-05-07 10:08] LABS: TEARDROP CELLS SLIGHT
--- NOTE | 2018-05-07 10:48 | C.PDOC ---
History Of Present Illness 48-year-old female, presents to the emergency department with complaints of one day duration of body aches and subjective fever. Patient denies any nausea/ vomiting, abdominal pain, back pain, or any other associated symptoms. No other complaints at this time. Chief Complaint (Nursing): Flu-like Symptoms History Per: Patient History/Exam Limitations: no limitations Current Symptoms Are (Timing): Still Present Past Medical History Reviewed: Historical Data, Nursing Documentation, Vital Signs Vital Signs: Last Vital Signs Temp 98.5 F 05/07/18 08:46 Pulse 98 H 05/07/18 08:46 Resp 18 05/07/18 08:46 BP 108/76 05/07/18 08:46 Pulse Ox 100 05/07/18 08:46 - Medical History PMH: Anemia, Gall Bladder Disease (CHOLECYSTECTOMY), Migraine Denies: Chronic Kidney Disease Surgical History: Cholecystectomy Family History: States: No Known Family Hx - Social History Hx Tobacco Use: No Hx Alcohol Use: No Hx Substance Use: No - Immunization History Hx Tetanus Toxoid Vaccination: No Hx Influenza Vaccination: No Hx Pneumococcal Vaccination: No Review Of Systems Constitutional: Positive for: Fever, Malaise Cardiovascular: Negative for: Chest Pain, Palpitations Respiratory: Negative for: Shortness of Breath Gastrointestinal: Negative for: Nausea, Vomiting Musculoskeletal: Negative for: Back Pain Physical Exam - Physical Exam Appears: Non-toxic, No Acute Distress Skin: Normal Color, Warm, Dry, No Rash Head: Atraumatic, Normacephalic Eye(s): bilateral: Normal Inspection Nose: Normal Oral Mucosa: Moist Lips: Normal Appearing Neck: Normal ROM Chest: Symmetrical Cardiovascular: Rhythm Regular, No Murmur Respiratory: Normal Breath Sounds, No Accessory Muscle Use Gastrointestinal/Abdominal: Soft, No Tenderness, No Guarding, No Rebound, Other (uterus distended) Extremity: Normal ROM, No Deformity, No Swelling Neurological/Psych: Oriented x3, Normal Speech ED Course And Treatment - Laboratory Results Result Diagrams: 05/07/18 09:35 05/07/18 09:35 O2 Sat by Pulse Oximetry: 100 Pulse Ox Interpretation: Normal (RA) Progress Note: Bloodwork, Chest X-Ray, UA, rapid strep/flu ordered and reviewed. Pt treated with IVFs and Toradol Disposition - Disposition - Scribe Statement The provider has reviewed the documentation as recorded by the Scribe (Benjamín Gomez) All medical record entries made by the Scribe were at my direction and personally dictated by me. I have reviewed the chart and agree that the record accurately reflects my personal performance of the history, physical exam, medical decision making, and the department course for this patient. I have also personally directed, reviewed, and agree with the discharge instructions and disposition.
[2018-05-07 11:05] LABS: INFLUENZA A B NEGATIVE FOR FLU A/B (NEGATIVE)
--- NOTE | 2018-05-07 11:14 | RAD ---
Date of service: 05/07/2018 HISTORY: fever/leucocytosis COMPARISON: 07/22/2017 TECHNIQUE: Chest PA and lateral FINDINGS: LUNGS: No active pulmonary disease. PLEURA: No significant pleural effusion identified. No pneumothorax apparent. CARDIOVASCULAR: Normal. OSSEOUS STRUCTURES: No significant abnormalities. VISUALIZED UPPER ABDOMEN: Normal. OTHER FINDINGS: None. IMPRESSION: No active disease.
--- NOTE | 2018-05-07 11:37 | C.PDOC ---
History Of Present Illness 48-year-old female, presents to the emergency department with complaints of one day duration of body aches and subjective fever. Patient denies any nausea/ vomiting, abdominal pain, back pain, or any other associated symptoms. No other complaints at this time. Chief Complaint (Nursing): Flu-like Symptoms History Per: Patient History/Exam Limitations: no limitations Current Symptoms Are (Timing): Still Present Past Medical History Reviewed: Historical Data, Nursing Documentation, Vital Signs Vital Signs: Last Vital Signs Temp 98.0 F 05/07/18 15:46 Pulse 93 H 05/07/18 15:46 Resp 20 05/07/18 15:46 BP 100/67 05/07/18 15:46 Pulse Ox 100 05/07/18 17:36 - Medical History PMH: Anemia, Gall Bladder Disease (CHOLECYSTECTOMY), Migraine Denies: Chronic Kidney Disease Surgical History: Cholecystectomy Family History: States: No Known Family Hx - Social History Hx Tobacco Use: No Hx Alcohol Use: No Hx Substance Use: No - Immunization History Hx Tetanus Toxoid Vaccination: No Hx Influenza Vaccination: No Hx Pneumococcal Vaccination: No Review Of Systems Constitutional: Positive for: Fever, Malaise Respiratory: Negative for: Shortness of Breath Gastrointestinal: Negative for: Vomiting Skin: Negative for: Rash Physical Exam - Physical Exam Appears: Non-toxic, No Acute Distress Skin: Normal Color, Warm, Dry, No Rash Head: Atraumatic, Normacephalic Eye(s): bilateral: Normal Inspection Nose: Normal Oral Mucosa: Moist Lips: Normal Appearing Neck: Normal ROM Chest: Symmetrical Cardiovascular: Rhythm Regular, No Murmur Respiratory: Normal Breath Sounds, No Accessory Muscle Use Gastrointestinal/Abdominal: Soft, No Tenderness (distended uterus) Extremity: Normal ROM, No Deformity, No Swelling Neurological/Psych: Oriented x3, Normal Speech ED Course And Treatment - Laboratory Results Result Diagrams: 05/07/18 09:35 05/07/18 09:35 O2 Sat by Pulse Oximetry: 100 Pulse Ox Interpretation: Normal (RA) - Other Rad CXR X-Ray: Viewed By Me, Read By Radiologist Interpretation: Accession No. : [id number]. Patient Name / ID : APRIL NARANJO / [id number]. Exam Date : 05/07/2018 10:19:21 ( Approved ). Study Comment : Sex / Age : F / 48Y. Creator : Jamie Antony MD. Dictator : Jamie Antony MD. Oil Heater Installer : Chiropractic Neurologist : Jamie Antony MD. Approver2 : Report Date : 05/07/2018 11:12:48. My Comment : . Date of service: 05/07/2018. HISTORY: fever/leucocytosis. COMPARISON: 07/22. TECHNIQUE: Chest PA and lateral. FINDINGS: LUNGS: No active pulmonary disease. PLEURA: No significant pleural effusion identified. No pneumothorax apparent. CARDIOVASCULAR: Normal. OSSEOUS STRUCTURES: No significant abnormalities. VISUALIZED UPPER ABDOMEN: Normal. OTHER FINDINGS: None. IMPRESSION: No active disease. Progress Note: Bloodwork, Chest X-Ray, UA, rapid strep/flu ordered and reviewed. Pt treated with IVFs and Toradol. Patient has significantly elevated WBCs without clear source of infection. case was d/w pt's PMD who accepted her for observation to med/surg. Rocephin IV started. Disposition - Disposition Disposition: HOSPITALIZED Disposition Time: 12:26 Condition: FAIR - Clinical Impression Clinical Impression: Leukocytosis, Myalgia - Scribe Statement The provider has reviewed the documentation as recorded by the Scribe (Benjamín Gomez) All medical record entries made by the Scribe were at my direction and personally dictated by me. I have reviewed the chart and agree that the record accurately reflects my personal performance of the history, physical exam, medical decision making, and the department course for this patient. I have also personally directed, reviewed, and agree with the discharge instructions and disposition. Decision To Admit - Pt Status Changed To: Hospital Disposition Of: Observation - . Bed Request Type: Regular Admitting Physician: Regan Allen Patient Diagnosis: Leukocytosis, Myalgia
[2018-05-07] MEDS ORDERED: cefTRIAXone IV 1 gm in Dextros 50 ML IVPB STA (12:07)
[2018-05-07] MEDS ORDERED: cefTRIAXone IV 1 gm in Dextros 50 ML IVPB ONE (12:09)
[2018-05-07 13:48] VITALS: RESP 20
--- NOTE | 2018-05-07 19:09 | CP.PCM.HP ---
Past Patient History - Infectious Disease Hx of Infectious Diseases: None - Past Medical History & Family History Past Medical History?: Yes - Past Social History Smoking Status: Never Smoked - CARDIAC Hx Cardiac Disorders: No - PULMONARY Hx Respiratory Disorders: No - NEUROLOGICAL Hx Migraine: Yes - HEENT Hx HEENT Problems: No - RENAL Hx Chronic Kidney Disease: No - ENDOCRINE/METABOLIC Hx Endocrine Disorders: No - HEMATOLOGICAL/ONCOLOGICAL Hx Anemia: Yes - INTEGUMENTARY Hx Dermatological Problems: No - MUSCULOSKELETAL/RHEUMATOLOGICAL Hx Musculoskeletal Disorders: No - GASTROINTESTINAL Hx Gall Bladder Disease: Yes (CHOLECYSTECTOMY) - GENITOURINARY/GYNECOLOGICAL Hx Genitourinary Disorders: Yes Other/Comment: Leiomyomata - PSYCHIATRIC Hx Substance Use: No - SURGICAL HISTORY Hx Cholecystectomy: Yes - ANESTHESIA Hx Anesthesia: Yes Hx Anesthesia Reactions: No Meds Allergies/Adverse Reactions: Allergies Allergy/AdvReac Type Severity Reaction Status Date / Time diphenhydramine HCl AdvReac Verified 05/07/18 08:49 [From Benadryl] morphine AdvReac SHORTNESS Verified 05/07/18 08:49 OF BREATH Physical Exam - Constitutional Appears: Well - Head Exam Head Exam: ATRAUMATIC, NORMAL INSPECTION, NORMOCEPHALIC - Eye Exam Eye Exam: EOMI, Normal appearance, PERRL Pupil Exam: NORMAL ACCOMODATION, PERRL - ENT Exam ENT Exam: Mucous Membranes Moist, Normal Exam - Neck Exam Neck exam: Positive for: Normal Inspection - Respiratory Exam Respiratory Exam: Decreased Breath Sounds - Cardiovascular Exam Cardiovascular Exam: REGULAR RHYTHM, +S1, +S2 - GI/Abdominal Exam GI & Abdominal Exam: Diminished Bowel Sounds, Soft - Rectal Exam Rectal Exam: Deferred Results - Vital Signs Recent Vital Signs: Last Vital Signs Temp 98.0 F 05/07/18 15:46 Pulse 93 H 05/07/18 15:46 Resp 20 05/07/18 15:46 BP 100/67 05/07/18 15:46 Pulse Ox 100 05/07/18 18:34 - Labs Result Diagrams: 05/07/18 09:35 05/07/18 09:35 Labs: Laboratory Results - last 24 hr 05/07/18 05/07/18 05/07/18 09:13 09:35 09:35 WBC 15.7 H RBC 4.68 Hgb 11.8 D Hct 36.8 MCV 78.6 L D MCH 25.2 L MCHC 32.0 L RDW 16.5 H Plt Count 276 MPV 8.1 Neut % (Auto) 89.7 H Lymph % (Auto) 6.4 L [place] % (Auto) 3.5 Eos % (Auto) 0.2 Baso % (Auto) 0.2 Neut # (Auto) 14.1 H Lymph # (Auto) 1.0 [place] # (Auto) 0.5 Eos # (Auto) 0.0 Baso # (Auto) 0.0 Neutrophils % (Manual) 92 H Lymphocytes % (Manual) 3 L Monocytes % (Manual) 5 Platelet Estimate Normal Polychromasia Slight Hypochromasia (manual) Slight Anisocytosis (manual) Slight Tear Drop Cells Slight Sodium 140 Potassium 4.0 Chloride 104 Carbon Dioxide 27 Anion Gap 13 BUN 8 Creatinine 0.5 L Est GFR ( Amer) > 60 Est GFR (Non-Af Amer) > 60 Random Glucose 103 Calcium 9.1 Total Bilirubin 0.6 AST 45 H D ALT 40 Alkaline Phosphatase 82 Total Creatine Kinase 47 Total Protein 7.0 Albumin 4.1 Globulin 2.9 Albumin/Globulin Ratio 1.4 Urine Color Yellow Urine Clarity Clear Urine pH 6.0 Ur Specific [place] 1.009 Urine Protein Negative Urine Glucose (UA) Normal Urine Ketones Negative Urine Blood Negative Urine Nitrate Negative Urine Bilirubin Negative Urine Urobilinogen Normal Ur Leukocyte Esterase Neg Urine WBC (Auto) < 1 Urine RBC (Auto) < 1 Ur Squamous Epith Cells 17 H Urine Bacteria Rare Urine HCG, Qual Negative Influenza Typ A,B (EIA) Grp A Beta Strep Ag 05/07/18 10:47 WBC RBC Hgb Hct MCV MCH MCHC RDW Plt Count MPV Neut % (Auto) Lymph % (Auto) [place] % (Auto) Eos % (Auto) Baso % (Auto) Neut # (Auto) Lymph # (Auto) [place] # (Auto) Eos # (Auto) Baso # (Auto) Neutrophils % (Manual) Lymphocytes % (Manual) Monocytes % (Manual) Platelet Estimate Polychromasia Hypochromasia (manual) Anisocytosis (manual) Tear Drop Cells Sodium Potassium Chloride Carbon Dioxide Anion Gap BUN Creatinine Est GFR ( Amer) Est GFR (Non-Af Amer) Random Glucose Calcium Total Bilirubin AST ALT Alkaline Phosphatase Total Creatine Kinase Total Protein Albumin Globulin Albumin/Globulin Ratio Urine Color Urine Clarity Urine pH Ur Specific [place] Urine Protein Urine Glucose (UA) Urine Ketones Urine Blood Urine Nitrate Urine Bilirubin Urine Urobilinogen Ur Leukocyte Esterase Urine WBC (Auto) Urine RBC (Auto) Ur Squamous Epith Cells Urine Bacteria Urine HCG, Qual Influenza Typ A,B (EIA) Negative for flu a/b Grp A Beta Strep Ag Negative
[2018-05-08 07:01] LABS: BASO % 0.6 % (0.0-2.0); EOS # 0.2 K/uL (0.0-0.7); EOS % 3.2 % (0.0-4.0); HEMOGLOBIN 10.3 g/dL (11.0-16.0); LYMPH # 1.6 K/uL (1.0-4.3); LYMPH % 26.1 % (20.0-40.0); MEAN CORPUSCULAR HEMOGLOBIN 25.5 pg (27.0-31.0); MEAN CORPUSCULAR HGB CONC 32.2 g/dL (33.0-37.0); MEAN PLATELET VOLUME 8.1 fL (7.2-11.7); MONO # 0.6 K/uL (0.0-0.8); MONO % 9.1 % (0.0-10.0); NEUT # 3.8 K/uL (1.8-7.0); NRBC % 0.1 % (0.0-2.0); RBC 4.05 Mil/uL (3.80-5.20); RED CELL DISTRIBUTION WIDTH 16.3 % (11.5-14.5); WHITE BLOOD COUNT 6.3 K/uL (4.8-10.8)
[2018-05-08 07:33] LABS: ALB/GLOB RATIO 1.2 (1.0-2.1); ALBUMIN 3.2 g/dL (3.5-5.0); ALT/SGPT 43 U/L (9-52); AST/SGOT 41 U/L (14-36); BLOOD UREA NITROGEN 8 mg/dL (7-17); CALCIUM 8.6 mg/dl (8.6-10.4); GFR AFRICAN-AMERICAN > 60; GFR NON-AFRICAN AMERICAN > 60
--- NOTE | 2018-05-08 09:39 | CP.PCM.PN ---
Subjective - Date & Time of Evaluation Date of Evaluation: 05/08/18 Time of Evaluation: 09:35 - Subjective Subjective: PGY-[address] Shena Allen Patient seen and examined at bedside. Per nursing no acute events occurred overnight. Patient still reports some muscle pain. She denies any fevers, chills, nausea, vomiting, changes in vision, syncopal episodes, or any other complaints. 48 year old female with a past medical hisotry of anemia, cholecystitis (s/p cholecystectomy), and migraines who comes in today complaining of body aches for the past couple of days. Patient denies any recent travel, sick contacts, changes in food intake, dizziness, syncopal episodes, or any other complaints. Past medical history: migraines, anemia, cholecystitis Surgical history: cholecystectomy Allergies: Diphenhydramine hcl, morphine Medications: Denies Social history: Denies any smoking or alcohol use. Denies illicit drug use. Objective - Vital Signs/Intake and Output Vital Signs (last 24 hours): Temp Pulse Resp BP Pulse Ox 98.2 F 82 20 113/73 99 05/08/18 07:00 05/08/18 07:00 05/08/18 07:00 05/08/18 07:00 05/08/18 07:37 Intake and Output: 05/08/18 05/08/18 06:59 18:59 Intake Total 600 Balance 600 - Medications Medications: Current Medications Enoxaparin Sodium (Lovenox) 40 mg SC DAILY [facility] Ceftriaxone Sodium 1 gm/ (Sodium Chloride) 100 mls @ 100 mls/hr IVPB DAILY [facility] PRN Reason: Protocol Ketorolac Tromethamine (Toradol) 15 mg IVP Q6H PRN PRN Reason: Pain, moderate (4-7) Last Admin: 05/07/18 19:43 Dose: 15 mg Pantoprazole Sodium (Protonix Ec Tab) 40 mg PO DAILY [facility] - Labs Labs: 05/08/18 06:52 05/08/18 06:52 - Head Exam Head Exam: ATRAUMATIC, NORMAL INSPECTION, NORMOCEPHALIC - Eye Exam Eye Exam: EOMI, Normal appearance, PERRL Pupil Exam: NORMAL ACCOMODATION - ENT Exam ENT Exam: Mucous Membranes Moist, Normal Oropharynx - Respiratory Exam Respiratory Exam: Clear to Ausculation Bilateral - Cardiovascular Exam Cardiovascular Exam: REGULAR RHYTHM, +S1, +S2 - GI/Abdominal Exam GI & Abdominal Exam: Soft, Normal Bowel Sounds - Extremities Exam Extremities Exam: Full ROM, Normal Inspection. absent: Pedal Edema - Neurological Exam Neurological Exam: Alert, Awake - Psychiatric Exam Psychiatric exam: Normal Affect, Normal Mood - Skin Skin Exam: Dry Assessment and Plan - Assessment and Plan (Free Text) Assessment: 48 year old female with a past medical hisotry of anemia, cholecystitis (s/p cholecystectomy), and migraines who comes in today complaining of body aches for the past couple of days Plan: 1. Leukocytosis (associated with myalgias) WBC: 15.2 upon admission. 6.3 Today. Trending down Autoimmune vs. Infection -Blood culture: Preliminary: Gram Positive Cocci -U/A: Negative -Influenzae: negative -Procal: <.05L -Group Ab Strep: negative -Throat culture: negative -ESR, CRP ordered. Will f/u with results -Urine cx ordered. Will f/u with results -ID consulted help appreciated Medications: Ceftriaxone 1gm IVPB Daily (Start 05/08/18) Vancomycin 1GM IVPB Q12 (Start 05/08/18) Tylenol 650mg PO Q6 PRN 2.Anemia -Patient reports she doesn't take nay medications at home. -Iron studies ordered. Will f/u with results. -Stable. Will monitor with serial cbc's. PPX Lovenox 40mg SC Daily Protonix 40mg PO Daily All management per Dr. Shena Allen
[2018-05-08] MEDS: Enoxaparin 40 mg Syringe SC SCH (09:48)
[2018-05-08] MEDS: Pantoprazole 40 mg EC Tab PO SCH (09:49)
[2018-05-08] MEDS: Vancomycin 1 GM in Sodium Chloride 0.9% 200 ML IVPB SCH (18:20)
--- NOTE | 2018-05-08 20:35 | CP.PCM.PN ---
Subjective - Date & Time of Evaluation Date of Evaluation: 05/08/18 Time of Evaluation: 09:00 - Subjective Subjective: clinically same Objective - Vital Signs/Intake and Output Vital Signs (last 24 hours): Temp Pulse Resp BP Pulse Ox 99.1 F 94 H 20 113/80 99 05/08/18 15:00 05/08/18 15:00 05/08/18 15:00 05/08/18 15:00 05/08/18 16:51 - Medications Medications: Current Medications Acetaminophen (Tylenol 325mg Tab) 650 mg PO Q6 PRN PRN Reason: Pain, moderate (4-7) Enoxaparin Sodium (Lovenox) 40 mg SC DAILY [facility] Last Admin: 05/08/18 09:48 Dose: 40 mg Ceftriaxone Sodium 1 gm/ (Sodium Chloride) 100 mls @ 100 mls/hr IVPB DAILY [facility] ALFREDO PRN Reason: Protocol Last Admin: 05/08/18 09:48 Dose: 100 mls/hr Vancomycin HCl 1 gm/ Sodium (Chloride) 200 mls @ 166.7 mls/hr IVPB Q12H LUIS ALFREDO PRN Reason: Protocol Last Admin: 05/08/18 18:20 Dose: 166.7 mls/hr Ketorolac Tromethamine (Toradol) 15 mg IVP Q6H PRN PRN Reason: Pain, moderate (4-7) Last Admin: 05/08/18 16:03 Dose: 15 mg Pantoprazole Sodium (Protonix Ec Tab) 40 mg PO DAILY [facility] Last Admin: 05/08/18 09:49 Dose: 40 mg - Labs Labs: 05/08/18 06:52 05/08/18 06:52 - Constitutional Appears: Well - Head Exam Head Exam: ATRAUMATIC, NORMAL INSPECTION, NORMOCEPHALIC - Eye Exam Eye Exam: EOMI, Normal appearance, PERRL Pupil Exam: NORMAL ACCOMODATION, PERRL - ENT Exam ENT Exam: Mucous Membranes Moist, Normal Exam - Neck Exam Neck Exam: Full ROM, Normal Inspection. absent: Lymphadenopathy - Respiratory Exam Respiratory Exam: Decreased Breath Sounds - Cardiovascular Exam Cardiovascular Exam: REGULAR RHYTHM, +S1, +S2 - GI/Abdominal Exam GI & Abdominal Exam: Soft, Diminished Bowel Sounds - Rectal Exam Rectal Exam: Deferred
[2018-05-09] MEDS: Vancomycin 1 GM in Sodium Chloride 0.9% 200 ML IVPB SCH (06:11)
--- NOTE | 2018-05-09 06:51 | CON ---
Copied To: Tushar Trejo MD Attending MD: Tushar Trejo MD DATE: 05/08/2018 INFECTIOUS DISEASE CONSULT REQUESTING PHYSICIAN: Mikal Allen MD HISTORY OF PRESENT ILLNESS: This patient is a 48-year-old female. She was admitted yesterday from the ER with history of one day duration of body aches and was feeling feverish. She said she was having flu-like symptoms, and her white count was found to be 15,000, so she was admitted. She denied any other complaints. However on further asking, I found out she just recently had a tooth extracted on the right upper jaw, and she has some decaying tooth on the left upper jaw which she needs further to be removed on a later date according to the dentist, so she did see her dentist 2 weeks ago. SHE IS ALLERGIC TO DIPHENHYDRAMINE AND MORPHINE she says. She follows with Dr. Shena Allen, and she denies any recent travel. However, she has three birds. She says two lovebirds and one is the larger bird. Denies any other pets. She was not sick before. She did not have any travel. Nobody else is sick around her. Denies any abdominal pain. No nausea, no vomiting. No urinary symptoms. No back pain. No rashes; just came with flu like symptoms. PAST MEDICAL HISTORY: Significant for anemia. She has a history of fibroids, and she is still debating whether she should get surgery done for fibroids. She needs to follow with the [facility] as the gallbladder cholecystectomy done, history of migraines. SURGICAL HISTORY: Significant for cholecystectomy. She also has fibroids, big fibroid. SOCIAL HISTORY: Negative for smoking or drinking or any drug abuse, and she has not had any immunization for flu or pneumonia vaccine. On examination, she did complain of malaise, fever. She complained of body aches. She does also gives me history of shortness of breath when she walks 2 blocks as she has to walk for her work several blocks. After 2 to 3 blocks, she starts to get short of breath. She denies any nausea or vomiting. No diarrhea. No skin rashes. She feels body ache generalized, not localized to any joints. She does have a big fibroid which is palpable on abdominal exam, and she denies any diarrhea, dysuria, hematuria, or any frequency or urgency with the urine, and when I was going to see her, the nurse called me that there was one positive blood culture, so we need to see what it is growing. PHYSICAL EXAMINATION: VITAL SIGNS: She has been afebrile, but she was hypotensive. I see her blood pressure was 98/58 last night, and right now, temperature was 98, pulse 93, blood pressure 100/67, respirations are 20. HEENT: Head is atraumatic, normocephalic. Pupils are reacting to light. No icterus present. Nose is unremarkable. Mouth, no thrush. No redness present in the throat. She is missing her tooth on the right side, which was removed. Right maxilla and left maxilla has decaying of few teeth. NECK: Supple. No lymphadenopathy present. JVP is flat. Trachea is central. LUNGS: Chest wall is symmetrical. No crackles or rales present. HEART: S1, S2 regular. No murmurs appreciated. ABDOMEN: Soft, nontender. No guarding, no rigidity present. We do feel the fibroid uterus, which is extending up to the umbilicus. It seems she has a huge fibroid. EXTREMITIES: Have no edema, clubbing or cyanosis. NEUROLOGIC: No focal deficit. She is alert, oriented x3, but she only speaks Gabonese and the son was there who helped me out with the translation. Her white count was 15.7 yesterday, and today is 6.3; hemoglobin 10.3; hematocrit 32 today; platelet count is 270. She came with neutrophils of 89, white count 15.7, and ESR is 10, creatinine 0.5. AST was 45, albumin is 3.2. Procalcitonin came out 0.05, is low. UA shows squamous cells are there, otherwise, is unremarkable. Influenza negative for flu swab and group A and throat swab was also negative. She also had a chest x-ray which was negative. No active disease. She also had an echocardiogram which was ordered, and we are doing iron studies and since she had such a big fibroid, I do not see an echo done. I do not know why. I would order the echo right now, so that we can get it done, and the blood culture one set was positive, so I have repeated the cultures to rule out echo and to rule out any vegetation as she has one blood culture positive. We will follow ID and sensitivity. We will continue with vancomycin and Rocephin at this time. She did have dental workup done and should rule out endocarditis. She does have flu-like symptoms, but the flu swab was negative and her white count did come down with the present antibiotics and she also has fibroids, and she is aware of it. We will do further workup if she continues to have further fever and sepsis. Tushar Trejo MD
--- NOTE | 2018-05-09 07:41 | CP.PCM.PN ---
Subjective - Date & Time of Evaluation Date of Evaluation: 05/09/18 Time of Evaluation: 07:00 - Subjective Subjective: PGY2- Progress Note for Dr. Allen Patient seen and examined at bedside and in no acute distress. Patient says she has no complaints. Patient denies any chest pain, shortness of breath, abdominal pain, nausea, vomiting, diarrhea, or constipation. Objective - Vital Signs/Intake and Output Vital Signs (last 24 hours): Temp Pulse Resp BP Pulse Ox 97.9 F 80 20 119/78 97 05/09/18 07:00 05/09/18 07:00 05/09/18 07:00 05/09/18 07:00 05/09/18 07:00 Intake and Output: 05/09/18 05/09/18 06:59 18:59 Intake Total 1000 Balance 1000 - Medications Medications: Current Medications Acetaminophen (Tylenol 325mg Tab) 650 mg PO Q6 PRN PRN Reason: Pain, moderate (4-7) Enoxaparin Sodium (Lovenox) 40 mg SC DAILY [facility] Last Admin: 05/08/18 09:48 Dose: 40 mg Ceftriaxone Sodium 1 gm/ (Sodium Chloride) 100 mls @ 100 mls/hr IVPB DAILY LUIS ALFREDO PRN Reason: Protocol Last Admin: 05/08/18 09:48 Dose: 100 mls/hr Vancomycin HCl 1 gm/ Sodium (Chloride) 200 mls @ 166.7 mls/hr IVPB Q12H LUIS ALFREDO PRN Reason: Protocol Last Admin: 05/09/18 06:11 Dose: 166.7 mls/hr Ketorolac Tromethamine (Toradol) 15 mg IVP Q6H PRN PRN Reason: Pain, moderate (4-7) Last Admin: 05/08/18 16:03 Dose: 15 mg Pantoprazole Sodium (Protonix Ec Tab) 40 mg PO DAILY [facility] Last Admin: 05/08/18 09:49 Dose: 40 mg - Labs Labs: 05/08/18 06:52 05/08/18 06:52 - Additional Findings Additional findings: - Head Exam Head Exam: ATRAUMATIC, NORMAL INSPECTION, NORMOCEPHALIC - Eye Exam Eye Exam: EOMI, Normal appearance, PERRL Pupil Exam: NORMAL ACCOMODATION - ENT Exam ENT Exam: Mucous Membranes Moist, Normal Oropharynx - Respiratory Exam Respiratory Exam: Clear to Ausculation Bilateral - Cardiovascular Exam Cardiovascular Exam: REGULAR RHYTHM, +S1, +S2 - GI/Abdominal Exam GI & Abdominal Exam: Soft, Normal Bowel Sounds - Extremities Exam Extremities Exam: Full ROM, Normal Inspection. absent: Pedal Edema - Neurological Exam Neurological Exam: Alert, Awake - Psychiatric Exam Psychiatric exam: Normal Affect, Normal Mood - Skin Skin Exam: Dry Assessment and Plan - Assessment and Plan (Free Text) Assessment: 48 year old female with a past medical hisotry of anemia, cholecystitis (s/p cholecystectomy), and migraines who comes in today complaining of body aches for the past couple of days Plan: Leukocytosis (associated with myalgias) WBC: 15.2 upon admission. 6.3 Today. Trending down Autoimmune vs. Infection -Blood culture: Preliminary: Gram Positive Cocci- staph aureus and coag neg staph -Cxray: negative -U/A: Negative -Influenzae: negative -Procal: <.05L -Group Ab Strep: negative -Throat culture: negative -ESR,ordered. Will f/u with results -CRP: 16.5 -Urine cx ordered. Will f/u with results -ID consulted help appreciated Medications: Ceftriaxone 1gm IVPB Daily (Start 05/08/18) Vancomycin 1GM IVPB Q12 (Start 05/08/18) Tylenol 650mg PO Q6 PRN Anemia -Patient reports she doesn't take any medications at home. -Iron studies ordered. Will f/u with results. -Stable. Will monitor with serial cbc's. PPX Lovenox 40mg SC Daily Protonix 40mg PO Daily All management per Dr. Shena Allen Patient stable for discharge. Patient to take Zithromax 250mg by mouth daily for 3 days. Patient to take Naprosyn every 12 hours as needed for pain. Patient to take 1 multivitamin daily. Patient to follow up with Dr. Allen within 1 week.
[2018-05-09 07:45] LABS: BASO % 0.5 % (0.0-2.0); EOS # 0.1 K/uL (0.0-0.7); EOS % 1.4 % (0.0-4.0); HEMOGLOBIN 10.5 g/dL (11.0-16.0); LYMPH # 1.4 K/uL (1.0-4.3); LYMPH % 22.2 % (20.0-40.0); MEAN CORPUSCULAR HEMOGLOBIN 25.5 pg (27.0-31.0); MEAN CORPUSCULAR HGB CONC 32.6 g/dL (33.0-37.0); MEAN PLATELET VOLUME 7.9 fL (7.2-11.7); MONO # 0.6 K/uL (0.0-0.8); MONO % 8.9 % (0.0-10.0); NEUT # 4.4 K/uL (1.8-7.0); NRBC % 0.1 % (0.0-2.0); RBC 4.11 Mil/uL (3.80-5.20); RED CELL DISTRIBUTION WIDTH 16.3 % (11.5-14.5); WHITE BLOOD COUNT 6.5 K/uL (4.8-10.8)
[2018-05-09 08:14] LABS: ALB/GLOB RATIO 1.3 (1.0-2.1); ALBUMIN 3.4 g/dL (3.5-5.0); ALT/SGPT 55 U/L (9-52); AST/SGOT 37 U/L (14-36); BLOOD UREA NITROGEN 6 mg/dL (7-17); GFR AFRICAN-AMERICAN > 60; GFR NON-AFRICAN AMERICAN > 60
[2018-05-09 08:35] LABS: COMPLEMENT C4 29.8 mg/dL (14.0-44.0)
[2018-05-09 08:49] LABS: FERRITIN 9.2 ng/mL
[2018-05-09] MEDS: Enoxaparin 40 mg Syringe SC SCH (10:26)
[2018-05-09] MEDS: Pantoprazole 40 mg EC Tab PO SCH (10:26)
--- NOTE | 2018-05-09 12:33 | CP.PCM.PN ---
Subjective - Date & Time of Evaluation Date of Evaluation: 05/09/18 Time of Evaluation: 09:00 - Subjective Subjective: clinically same Objective - Vital Signs/Intake and Output Vital Signs (last 24 hours): Temp Pulse Resp BP Pulse Ox 97.9 F 80 20 119/78 97 05/09/18 07:00 05/09/18 07:00 05/09/18 07:00 05/09/18 07:00 05/09/18 07:00 Intake and Output: 05/09/18 05/09/18 06:59 18:59 Intake Total 1000 Balance 1000 - Medications Medications: Current Medications Acetaminophen (Tylenol 325mg Tab) 650 mg PO Q6 PRN PRN Reason: Pain, moderate (4-7) Enoxaparin Sodium (Lovenox) 40 mg SC DAILY [facility] Last Admin: 05/09/18 10:26 Dose: 40 mg Ceftriaxone Sodium 1 gm/ (Sodium Chloride) 100 mls @ 100 mls/hr IVPB DAILY [facility] ALFREDO PRN Reason: Protocol Last Admin: 05/09/18 10:26 Dose: 100 mls/hr Vancomycin HCl 1 gm/ Sodium (Chloride) 200 mls @ 166.7 mls/hr IVPB Q12H LUIS ALFREDO PRN Reason: Protocol Last Admin: 05/09/18 06:11 Dose: 166.7 mls/hr Ketorolac Tromethamine (Toradol) 15 mg IVP Q6H PRN PRN Reason: Pain, moderate (4-7) Last Admin: 05/08/18 16:03 Dose: 15 mg Pantoprazole Sodium (Protonix Ec Tab) 40 mg PO DAILY [facility] Last Admin: 05/09/18 10:26 Dose: 40 mg - Labs Labs: 05/09/18 07:34 05/09/18 07:34
--- NOTE | 2018-05-09 13:26 | CARD ---
APPROVED REPORT Date of service: 05/09/2018 EXAM: Two-dimensional and M-mode echocardiogram with Doppler and color Doppler. Other Information Quality : GoodRhythm : INDICATION Infection:Rule out subacute bacterial endocarditis FEVER 2D DIMENSIONS IVSd0.9 (0.7-1.1cm)LVDd4.3 (3.9-5.9cm) PWd0.7 (0.7-1.1cm)LVDs2.7 (2.5-4.0cm) FS (%) 38.2 %LVEF (%)68.8 (>50%) M-Mode DIMENSIONS Left Atrium (MM)3.48 (2.5-4.0cm)IVSd0.93 (0.7-1.1cm) Aortic Root3.09 (2.2-3.7cm)LVDd4.38 (4.0-5.6cm) Aortic Cusp Exc.2.11 (1.5-2.0cm)PWd0.94 (0.7-1.1cm) FS (%) 26 %LVDs3.26 (2.0-3.8cm) LVEF (%)64 (>50%) Mitral Valve MV E Yitkmefd96.4cm/sMV A Mamllizz38.6cm/sE/A ratio1.0 TDI E/Lateral E'0.0E/Medial E'0.0 Tricuspid Valve TR Peak [id number]/sTR Peak Gr.13mmHg LEFT VENTRICLE The left ventricle is normal size. There is normal left ventricular wall thickness. The left ventricular function is normal. The left ventricular ejection fraction is within the normal range. There is normal LV segmental wall motion. Transmitral Doppler flow pattern is Grade I-abnormal relaxation pattern. RIGHT VENTRICLE The right ventricle is normal size. There is normal right ventricular wall thickness. The right ventricular systolic function is normal. ATRIA The left atrium size is normal. The right atrium size is normal. AORTIC VALVE The aortic valve is mildly to moderately thickened. No aortic regurgitation is present. There is no aortic valvular stenosis. MITRAL VALVE The mitral valve is moderately thickened. There is no evidence of mitral valve prolapse. There is no mitral valve stenosis. There is no mitral valve regurgitation noted. TRICUSPID VALVE The tricuspid valve is normal in structure. There is no tricuspid valve regurgitation noted. There is no tricuspid valve prolapse or vegetation. PULMONIC VALVE The pulmonary valve is normal in structure. There is trace pulmonic valvular regurgitation. GREAT VESSELS The aortic root is normal in size. The IVC is normal in size and collapses >50% with inspiration. <Conclusion> The left ventricle is normal size. There is normal left ventricular wall thickness. The left ventricular function is normal. The left ventricular ejection fraction is within the normal range. There is normal LV segmental wall motion. Transmitral Doppler flow pattern is Grade I-abnormal relaxation pattern. No vegitation seen
[2018-05-09 15:56] VITALS: BP 120/81; PULSE 88; TEMP 98.4; O2SAT 99
== END 2018-05-09 17:24 | disposition home or self-care (01) ==
LOC: C.ER 08:35 → C.9E 12:21 → C.5S 12:54
PROVIDERS: ADMIT Internal Medicine Nephrology; ATTEND Internal Medicine Nephrology
DX: D72.829 Elevated white blood cell count, unspecified (principal); R50.9 Fever, unspecified; M79.1 Myalgia; D64.9 Anemia, unspecified; G43.909 Migraine, unspecified, not intractable, without status migrainosus
CPT/HCPCS: 36415; 71046; 80053; 81001; 82550; 82728; 84145; 84703; 85025; 85651; 86140; 86160; 86162; 87040; 87070; 87086; 87149; 87205; 87430; 87804; 93306; 96360; 96365; 96374; 99285; G0378; J0696; J1650; J1885; J7030; J7050